=== PATIENT | female | born 1990 ===

== ENCOUNTER 2020-12-29 16:22 | Emergency (ER) | payer SELFPAY ==
[2020-12-29 20:15] VITALS: BP 104/78
--- NOTE | 2020-12-29 21:12 | Emergency Department Report ---
ED General Adult HPI - General Chief complaint: Abdominal Pain Stated complaint: UPPER BACK PAIN/GAS/CONSTIPATION Time Seen by Provider: 12/29/20 20:40 Source: patient Mode of arrival: Ambulatory Limitations: No Limitations - History of Present Illness Initial comments: Patient is a 30-year-old female presents emergency room with complaints of constipation that began yesterday. She states that she used magnesium citrate without much relief. She states that she had a small bowel movement yesterday. She denies any blood in the stool. She denies any vomiting and she is able to tolerate p.o. intake. She states that she is also been having urinary frequency. Patient states that she has some back pain and upper abdominal pain which she states moves around and feels like gas. She states that the pain is worse whenever she has gas. She denies any fever, dysuria, abnormal vaginal discharge, hematochezia, melena, hematemesis. No past medical history. No allergies to medications. Past abdominal surgical history of x2. Last menstrual cycle 12/23/2020. - Related Data Previous Rx's Medication Instructions Recorded Last Taken Type Docusate Sodium [Colace] 100 mg PO BID PRN #30 capsule 12/29/20 Unknown Rx Fluconazole [Diflucan TAB] 150 mg PO QDAY 1 Days #3 tablet 12/29/20 Unknown Rx Polyethylene Glycol 3350 [Miralax] 7 gm PO DAILY #1 powder 12/29/20 Unknown Rx Simethicone [Gas-X] 62.5 mg PO Q8HR PRN #1 strip 12/29/20 Unknown Rx cephALEXin [Keflex] 500 mg PO BID 7 Days #14 cap 12/29/20 Unknown Rx ED Review of Systems ROS: Stated complaint: UPPER BACK PAIN/GAS/CONSTIPATION Other details as noted in HPI Comment: All other systems reviewed and negative ED Past Medical Hx - Past Medical History Previous Medical History?: No - Surgical History Past Surgical History?: No - Social History Smoking Status: Current Every Day Smoker Substance Use Type: Marijuana - Medications Home Medications: Home Medications Medication Instructions Recorded Confirmed Last Taken Type Docusate Sodium [Colace] 100 mg PO BID PRN #30 capsule 12/29/20 Unknown Rx Fluconazole [Diflucan TAB] 150 mg PO QDAY 1 Days #3 tablet 12/29/20 Unknown Rx Polyethylene Glycol 3350 [Miralax] 7 gm PO DAILY #1 powder 12/29/20 Unknown Rx Simethicone [Gas-X] 62.5 mg PO Q8HR PRN #1 strip 12/29/20 Unknown Rx cephALEXin [Keflex] 500 mg PO BID 7 Days #14 cap 12/29/20 Unknown Rx ED Physical Exam - General Limitations: No Limitations General appearance: alert, in no apparent distress - Head Head exam: Present: atraumatic, normocephalic - Eye Eye exam: Present: normal appearance - ENT ENT exam: Present: mucous membranes moist - Respiratory Respiratory exam: Present: normal lung sounds bilaterally. Absent: respiratory distress, wheezes, rales, rhonchi, stridor, chest wall tenderness, accessory muscle use, decreased breath sounds, prolonged expiratory - Cardiovascular Cardiovascular Exam: Present: regular rate, normal rhythm, normal heart sounds. Absent: systolic murmur, diastolic murmur, rubs, gallop - GI/Abdominal GI/Abdominal exam: Present: soft, normal bowel sounds. Absent: distended, tenderness, guarding, rebound, rigid - Back Exam Back exam: Absent: CVA tenderness (R), CVA tenderness (L) - Neurological Exam Neurological exam: Present: alert, oriented X3 - Psychiatric Psychiatric exam: Present: normal affect, normal mood - Skin Skin exam: Present: warm, dry, intact ED Course Vital Signs 12/29/20 20:05 Temperature 98.4 F Pulse Rate 76 Respiratory 18 Rate Blood Pressure 104/78 O2 Sat by Pulse 99 Oximetry ED Medical Decision Making - Lab Data Result diagrams: 12/29/20 20:53 12/29/20 20:53 - Medical Decision Making Patient is a 30-year-old female presents emergency room with complaints of constipation that began yesterday. She states that she used magnesium citrate without much relief. She states that she had a small bowel movement yesterday. She denies any blood in the stool. She denies any vomiting and she is able to tolerate p.o. intake. She states that she is also been having urinary frequency. Patient states that she has some back pain and upper abdominal pain which she states moves around and feels like gas. She states that the pain is worse whenever she has gas. She denies any fever, dysuria, abnormal vaginal discharge, hematochezia, melena, hematemesis. No past medical history. No allergies to medications. Past abdominal surgical history of x2. Last menstrual cycle 12/23/2020. Vitals are normal. No abdominal tenderness or CVA tenderness on exam. Labs are normal. UA shows evidence of UTI and yeast. Patient has no obstructive symptoms, she is tolerating p.o. intake, no vomiting, normal bowel sounds, no abdominal tenderness on exam. Patient given prescription for Colace, MiraLAX, Gas-X, Keflex, fluconazole. Advised patient Please take medication as prescribed. Increase your water intake. Follow-up with a primary care doctor. Return to emergency room for new worsening symptom s. Critical care attestation.: If time is entered above; I have spent that time in minutes in the direct care of this critically ill patient, excluding procedure time. ED Disposition Clinical Impression: Vulvovaginal candidiasis Constipation Qualifiers: Constipation type: unspecified constipation type Qualified Code(s): K59.00 - Constipation, unspecified UTI (urinary tract infection) Qualifiers: Urinary tract infection type: acute cystitis Hematuria presence: with hematuria Qualified Code(s): N30.01 - Acute cystitis with hematuria Disposition: TO HOME OR SELFCARE Is pt being admited?: No Does the pt Need Aspirin: No Condition: Stable Instructions: Vaginal Yeast Infection, Adult, Urinary Tract Infection, Adult, [id number], Constipation, Adult, Abdominal Pain (ED) Additional Instructions: Please take medication as prescribed. Increase your water intake. Follow-up with a primary care doctor. Return to emergency room for new worsening symptoms. Prescriptions: Docusate Sodium [Colace] 100 mg PO BID PRN #30 capsule PRN Reason: constipation Fluconazole [Diflucan TAB] 150 mg PO QDAY 1 Days #3 tablet Simethicone [Gas-X] 62.5 mg PO Q8HR PRN #1 strip PRN Reason: gas pain cephALEXin [Keflex] 500 mg PO BID 7 Days #14 cap Polyethylene Glycol 3350 [Miralax] 7 gm PO DAILY #1 powder Referrals: HAILEY VASQUEZ MD [Staff Physician] - 3-5 Days [facility] [Provider Group] - 3-5 Days [facility] [place], [LAB/CONTRACT] - 3-[address] [facility] [Outside] - 3-5 Days Time of Disposition: 22:17 Print Language: GEORGI[place]
[2020-12-29 21:32] LABS: Basophils % (Auto) 0.7 % (0.0-1.8); Eosinophils # (Auto) 0.1 K/mm3 (0.0-0.4); Eosinophils % (Auto) 0.7 % (0.0-4.3); Hemoglobin 14.2 gm/dl (10.1-14.3); Lymphocytes # (Auto) 2.5 K/mm3 (1.2-5.4); Lymphocytes % (Auto) 35.1 % (13.4-35.0); Mean Corpuscular HGB Conc 35 % (30-34); Mean Corpuscular Volume 83 fl (79-97); Monocytes # (Auto) 0.4 K/mm3 (0.0-0.8); Monocytes % (Auto) 6.3 % (0.0-7.3); Platelet Count 208 K/mm3 (140-440); Red Blood Count 4.97 M/mm3 (3.65-5.03); Red Cell Distribution Width 13.7 % (13.2-15.2)
[2020-12-29 21:52] LABS: Bacteria,Urine 1+ /HPF (Negative); Bilirubin,Urine NEG (Negative); Blood,Urine NEG (Negative); Color,Urine Yellow (Yellow); HCG Qualitative,Urine Negative (Negative); Mucus,Urine 1+ /HPF; Protein,Urine <15 mg/dL mg/dL (Negative); Urobilinogen,Urine < 2.0 mg/dL (<2.0)
[2020-12-29 21:57] LABS: Alanine Aminotransferase 12 units/L (7-56); Albumin 5.3 g/dL (3.9-5); Blood Urea Nitrogen 15 mg/dL (7-17); Calcium 9.5 mg/dL (8.4-10.2); Hemolysis Index 9
[2020-12-29 21:58] LABS: BUN/Creatinine Ratio 25
== END 2020-12-29 22:30 | disposition home or self-care (01) ==
LOC: ED 16:22
DX: N39.0 Urinary tract infection, site not specified (principal); B37.3 Candidiasis of vulva and vagina; F17.200 Nicotine dependence, unspecified, uncomplicated; F12.10 Cannabis abuse, uncomplicated
CPT/HCPCS: 36415; 80053; 81001; 81025; 83690; 85025; 87086; 99283